=== PATIENT | female | born 1980 | race Caucasian/White ===

== ENCOUNTER 2017-05-22 10:18 | Inpatient (IN) | payer OTHER ==
[~2017-05-22] VITALS: Ht 157.5 cm; Wt 98.1 kg
--- NOTE | ~2017-05-22 | DS ---
Unit #: [id number] #: [id number] Patient: ED FRANCIS [id number] [address] [address] [id number] I MR#: [id number] NAME: ED FRANCIS ROOM: 568 Age: 36 Sex: F Admission Date: 05/22/2017 : 1980 Discharge Date: 05/30/2017 Attending Physician: Marisol Muniz M.D. Primary Care Physician: Gisel Monk M.D. DISCHARGE SUMMARY FINAL DIAGNOSES 1. Acute hypoxic respiratory failure. 2. Aspiration pneumonia. 3. Bibasilar atelectasis. 4. Possible right lower lobe pulmonary embolism nonocclusive. 5. Iron deficiency anemia. 6. Ejection fraction of 45% to 50%. 7. Elevated troponin on admission, per Cardiology, type 2, non-ST segment myocardial infarction. 8. Dysphagia/aspiration. 9. Hypothyroidism. 10. Chronic back pain. 11. Reformed tobacco abuse, quit two to three weeks ago. 12. Postoperative breast reduction and abdominoplasty. DISCHARGE MEDICATIONS 1. Clindamycin 300 mg q.i.d. 2. Eliquis 5 mg p.o. 2 tablets b.i.d. for 7 days, then 1 tablet b.i.d. 3. Levothyroxine 137 mcg p.o. daily. 4. Cytomel 5 mcg p.o. daily. 5. Flexeril continue home dose. 6. Protonix 40 mg daily. 7. Oxycodone continue home dose. Patient still has pain medications at home. 8. Ferrous gluconate 324 mg twice daily. 9. Bisacodyl 5 mg daily p.r.n. for constipation. 10. Lopressor 25 mg b.i.d. 11. Albuterol inhaler 2 puffs t.i.d. p.r.n. CONSULTATIONS 1. Dr. Leif Kaiser from pulmonary services. 2. Dr. Sharp from cardiology services. DIAGNOSTIC STUDIES LABORATORY ON DISCHARGE: CBC shows WBC 7.3, hemoglobin 8.4, hematocrit 25.2, and platelet count of 313,000. Total iron 16 which is low, TIBC 239 which is low, and transferrin 171 which is low. Sodium 138, potassium 3.8, chloride 103, BUN 10, creatinine 0.8, and calcium 7.9. Sputum culture was 1+ normal katerin. Troponin 0.14. Hemoglobin A1c 5.8. IMAGING: CTA of the chest on May 22, 2017, showed multifocal patchy ground-glass alveolar densities throughout both lungs. No pulmonary embolism was seen. Repeat CTA of the chest was done on May 29, 2017, that showed persistent filling defect within the distal right main Unit #: [id number] #: [id number] Patient: ED FRANCIS pulmonary artery concerning for isolated thrombus but no other definite thrombi are identified. Continued bibasilar atelectasis with increasing volume loss in both lung. Resolution of ground-glass opacities in the mid and upper lung zones. Ultrasound of the upper extremity showed superficial venous thrombosis in the proximal basilic vein. Otherwise, the study is normal. Bilateral ultrasound of the lower extremities was done which was negative for any DVT. HOSPITAL COURSE Ms. Ed Francis is a 36-year-old female who underwent breast reduction/lift and abdominoplasty and presented to the ER with increasing shortness of breath two to three days later. Patient also reported occasional cough with blood-tinged secretions. A CTA of the chest was done on admission day and PE was ruled out, and she was started on broad spectrum IV antibiotics. Dr. Leif Kaiser from pulmonary services was consulted. Antibiotics were started as per his recommendation. It was thought most likely this is aspiration as the patient has had aspiration-related complications in the past. Patient received IV Zosyn for the first few days, and later on she started complaining of shortness of breath associated with Zosyn. Antibiotics were changed to clindamycin as per Pulmonary recommendation. Patient has been doing well on that. Patient did have acute hypoxic respiratory failure. On discharge, patient's room air pulse oximetry is pretty low, and she is being discharged home on home O2. She may require this for one to three months or so. That needs to be evaluated as an outpatient. A CT scan which was done yesterday showed probable pulmonary embolism. Dr. Leif Kaiser discussed with radiologist. It has been decided to start her on anticoagulation therapy. Patient received Lovenox full dose in the hospital and is being changed to Eliquis 5 mg 2 tablets b.i.d. for 7 days and then change to 5 mg p.o. b.i.d. Most likely, she will need to continue this for three months. Patient's troponin was elevated during admission, and Cardiology was consulted. It has been suggested that there is a possibility that patient had type 2 troponin elevation secondary to pneumonia. Aspirin was added. Echocardiogram was done which showed ejection fraction of 45% to 50%. Patient will need to follow up with Cardiology as an outpatient. Patient was seen by Dr. Sharp in the hospital. Patient is postop breast reduction/lift and abdominoplasty. The patient has been advised to continue wound care as has been suggested by surgeon and follow up with Dr. Hwang as scheduled. Patient has an appointment coming up tomorrow for staple removal. PHYSICAL EXAMINATION ON DISCHARGE VITAL SIGNS: Blood pressure is 130/78, respiratory rate 18, pulse 78, temperature 97.8, and oxygen saturation is 98% on oxygen. HEENT: Head is normocephalic. CHEST: Fair air entry. A few rhonchi heard. CARDIOVASCULAR: S1 and S2 positive. Regular rhythm. ABDOMEN: Soft. EXTREMITIES: Negative edema. DISCHARGE INSTRUCTIONS 1. Patient is being discharged home in stable condition. 2. Medications as per medication reconciliation. 3. Follow up with primary care provider in one week. Unit #: [id number] #: [id number] Patient: ED FRANCIS 4. Follow up with Dr. Leif Kaiser in two weeks. 5. Home O2 is being arranged to keep saturation above 92%. 6. Eliquis to be taken for three months almost. 7. Follow up with Dr. Hwang as scheduled. 8. Follow up with Dr. Sharp, social studies teacher, in three to four weeks or so. 1. Dictated by... Debbie Tanner TD: 05/30/2017 14:12 JOB #: [id number] DISCHARGE SUMMARY Page 1 of 1 X Marisol Muniz MD DISCHARGE SUMMARY
--- NOTE | ~2017-05-22 | CR63 ---
[facility] A Service of [facility] RADIOLOGY TEXT RESULTS PATIENT: CLEO FRANCIS LOCATION: [facility] 568-01 : [birth year] UNIT #: [id number] AGE: [address]: Marisol Muniz MD SEX: F ORDER DR: [id number] [facility] [address] [facility]. [place], [place] [address] [id number] I MR#: [id number] Acc #: [id number] NAME: CLEO FRANCIS : 1980 SEX: F STUDY DATE/TIME: 05/25/2017 8:12 UNIT: [facility] ROOM: [facility] STUDY DESCRIPTION: CR Chest 2 View Attending Physician: Marisol Muniz M.D. Ordering Physician: Jed Kaiser M.D. Primary Care Physician: Gisel Monk M.D. MEDICAL IMAGING REPORT This report is preliminary unless electronic signature is present EXAM Chest 05/25/2017 HISTORY 36-year-old woman, short of air, cough, congestion x1 week. Recent surgical procedure, tummy tuck 1 week ago. COMPARISON Chest 09/23/2013. CT angio chest for PE 05/22/2017. FINDINGS PA and lateral chest views demonstrate large body habitus with reduced inspiratory effort. Multifocal infiltrates are again noted with atelectasis present in the right midlung and left lower lobe. Findings are most pronounced in the left lower lobe. Pulmonary emboli were not identified on the recent CTA of the chest. Therefore, multifocal pneumonia seems most likely. This is obviously unresolved at this time. Short-interval followup indicated. IMPRESSION Multifocal infiltrates with areas of atelectasis in both lungs. Presumably, pulmonary thromboembolic disease has been excluded. Multifocal pneumonia unresolved. Dictated by... Parveen Wong M.D. THIS IS AN ELECTRONICALLY VERIFIED REPORT Parveen Wong M.D. at 05/25/2017 11:04 AM KATHI/emanuel TD: 05/25/2017 09:16 [facility] A Service of [facility] RADIOLOGY TEXT RESULTS PATIENT: CLEO FRANCIS LOCATION: [facility] 568-01 : [birth year] UNIT #: [id number] AGE: [address]: Marisol Muniz MD SEX: F ORDER DR: JOB #: [id number] MEDICAL IMAGING REPORT Page 1 of 1 COPY
--- NOTE | ~2017-05-22 | CT16 ---
[facility] A Service of [facility] RADIOLOGY TEXT RESULTS PATIENT: CLEO FRANCIS LOCATION: [facility] 568-01 : [birth year] UNIT #: [id number] AGE: [address]: Marisol Muniz MD SEX: F ORDER DR: [id number] [facility] [address] [facility]. [place], [place] [address] [id number] I MR#: [id number] Acc #: [id number] NAME: CLEO FRANCIS. : 1980 SEX: F STUDY DATE/TIME: 05/22/2017 10:56 UNIT: [facility] ROOM: [id number] STUDY DESCRIPTION: CT Angio Chest for PE Attending Physician: Marisol Muniz M.D. Ordering Physician: Ely Murrell Pa-C Primary Care Physician: Gisel Monk M.D. MEDICAL IMAGING REPORT This report is preliminary unless electronic signature is present EXAM CTA chest with contrast PE protocol 05/22/2017 HISTORY 36-year-old female with shortness of breath today and yesterday morning. Tummy tuck procedure performed 5 days ago. COMPARISON PA and lateral chest radiograph 09/23/2013. No previous CT chest at this institution for comparison. PROCEDURE 2 mm axial images through the chest after IV contrast administration. 3-D coronal MIP reformatted images were obtained. This CT exam was performed with one or more of the following radiation dose reduction techniques: automatic exposure control, adjustment of mA and/or kV according to patient size, and iterative reconstruction. FINDINGS No pulmonary embolism is seen. Some of the distal segmental and subsegmental pulmonary arteries are obscured by airspace disease. Multifocal patchy ground-glass and alveolar densities are seen throughout both lungs, greatest within the bilateral lower lobes, favored to represent changes of multifocal pneumonia in the appropriate clinical context. Trace bilateral pleural effusions are present in the dependent bases. Heart size is within normal limits. No pathologic adenopathy is seen. Small amount of air is demonstrated within the right chest wall and within the right and midline upper abdominal wall consistent with recent surgical intervention. No pneumothorax or free intraperitoneal air is identified. Cholecystectomy changes are present. The included upper STS. [facility] A Service of [facility] RADIOLOGY TEXT RESULTS PATIENT: CLEO FRANCIS LOCATION: [facility] 568-01 : [birth year] UNIT #: [id number] AGE: [address]: Marisol Muniz MD SEX: F ORDER DR: abdominal organs have a normal appearance. No acute osseous abnormalities are identified. IMPRESSION 1. Multifocal patchy ground-glass alveolar densities are seen throughout both lungs, greatest in a bilateral lower lobe distribution. Findings are favored to represent changes of multifocal pneumonia in the appropriate clinical context. 2. No pulmonary embolism is seen. Some of the distal segmental and subsegmental pulmonary arteries are obscured by aforementioned airspace disease. 3. Trace bilateral pleural effusions. 4. Subcutaneous air in the right chest wall abdominal wall consistent with recent surgical intervention. No gross free intraperitoneal air is detected within the upper abdomen. 5. Cholecystectomy. Dictated by... Marley Gonzales M.D. THIS IS AN ELECTRONICALLY VERIFIED REPORT Marley Gonzales M.D. at 05/23/2017 7:08 AM Susanne TD: 05/22/2017 17:30 JOB #: [id number] MEDICAL IMAGING REPORT Page 1 of 1 COPY
--- NOTE | ~2017-05-22 | CR63 ---
[facility] A Service of [facility] RADIOLOGY TEXT RESULTS PATIENT: CLEO FRANCIS LOCATION: [facility] 568-01 : [birth year] UNIT #: [id number] AGE: [address]: Marisol Muniz MD SEX: F ORDER DR: [id number] [facility] [address] [facility]. [place], [place] [address] [id number] I MR#: [id number] Acc #: [id number] NAME: CLEO FRANCIS : 1980 SEX: F STUDY DATE/TIME: 05/29/2017 7:26 UNIT: [facility] ROOM: [facility] STUDY DESCRIPTION: CR Chest 2 View Attending Physician: Marisol Muniz M.D. Ordering Physician: Jed Kaiser M.D. Primary Care Physician: Gisel Monk M.D. MEDICAL IMAGING REPORT This report is preliminary unless electronic signature is present EXAM PA and lateral chest INDICATION Cough, shortness of breath for 1 week. COMPARISON 05/25/2017. FINDINGS Stable bibasilar atelectasis. Trace pleural fluid. Heart size stable. New right PICC line. IMPRESSION New right-sided PICC line; otherwise, no significant change. Dictated by... Toño Rooney M.D. THIS IS AN ELECTRONICALLY VERIFIED REPORT Toño Rooney M.D. at 05/30/2017 4:38 PM KRISTIN/emanuel TD: 05/29/2017 13:03 JOB #: [id number] MEDICAL IMAGING REPORT Page 1 of 1 COPY
--- NOTE | ~2017-05-22 | CO ---
Unit #: [id number] #: [id number] Patient: CLEO FRANCIS [id number] [facility]. [place], [place] [address] [id number] I MR#: [id number] NAME: CLEO FRANCIS ROOM: 568 Age: 36 Sex: F Admission Date: 05/22/2017 : 1980 Attending Physician: Marisol Muniz M.D. Primary Care Physician: Gisel Monk M.D. Consultation Date: 05/23/2017 CONSULTATION REPORT HISTORY OF PRESENT ILLNESS Ms. Francis is a 36-year-old white female, who presented with increasing shortness of breath and hypoxia. On 05/18/2017, she underwent abdominoplasty, I believe breast reduction. She presented to the emergency room on the , because of increased shortness of breath over the last 2 to 3 days. This was associated with coughing up some blood streaked sputum. It is initially reddened postoperatively and streaky, but has become dark in color with more scant amounts. She has had pain in the back of her throat and difficulty swallowing and choking on things. She is unaware of any fever or chills. On presentation to the emergency room, her room air O2 saturation was recorded at 84%. She underwent CT scan of the chest which revealed no evidence of pulmonary emboli with bilateral patchy ground-glass infiltrates and some alveolar infiltrates predominantly in the bases of the lungs. Her troponin was mildly elevated at 0.23 with a max of 0.36. Her EKG showed some nonspecific ST-T wave changes. She does have a history of chest pain since she was a child. Apparently, has had a stress chest and EKG which was unremarkable and felt not to be cardiac related. She says it may have been related to anxiety. She has no history of cardiac disease. She is reformed smoker x2 weeks, has accumulated less than 8 pack year history, but stopped 2 weeks ago. She has never had hemoptysis before. She had no illness prior to surgery. PAST MEDICAL HISTORY Significant for chronic low back pain, history of hypothyroidism secondary to thyroidectomy, surgery of breast reduction, abdominoplasty, thyroidectomy, hysterectomy, cholecystectomy. SOCIAL HISTORY Reformed smoker x2 weeks, smoked less than a pack a day for 8 years. No alcohol or illicit drugs. FAMILY HISTORY No history of coronary artery disease. ALLERGIES Sulfa, tetracycline, erythromycin, apparently latex, and codeine. HOME MEDICATIONS Listed include fluconazole, Medrol Dosepak, hydrocodone and acetaminophen, Cytomel, methocarbamol, Synthroid, Flexeril. REVIEW OF SYSTEMS Otherwise negative. Unit #: [id number] #: [id number] Patient: CLEO FRANCIS PHYSICAL EXAMINATION GENERAL: Pleasant white female, in no distress. VITAL SIGNS: Blood pressure 119/75, pulse 78, respiratory rate 18, temperature 98.7. HEENT: Normocephalic and atraumatic. Pupils are equal, round, and reactive. Sclerae nonicteric. Nasal passages patent. Oral cavity, dentition good. Mallampati IV. There appears to be some trauma to the left side of the uvula with some white/yellowish discoloration with long streak along the uvula. NECK: Supple, thick. No cervical or supraclavicular lymphadenopathy. No crepitance. LUNGS: Reveals some crackles in the right base, otherwise fairly clear. No wheezing. CARDIAC: Regular rate and rhythm. Could not appreciate murmur, rub, or gallop. EXTREMITIES: Without clubbing, cyanosis, or edema. Homans sign negative. No cords palpated. Pulses 2+. NEUROLOGIC: Awake and oriented x3, moves all extremities. SKIN: Warm and dry. PSYCHIATRIC: Affect calm. No respiratory distress. DIAGNOSTIC STUDIES IMAGING STUDIES: Chest CT personally reviewed as noted. LABORATORY RESULTS: Chemistries reviewed. Sodium 130, potassium 3.9, glucose 156, calcium 8.0, albumin 3.1. Liver function tests normal. BNP is 300. Hemoglobin A1c is 5.8. Lactic acid 2.3 and 2.2. Triglycerides 190, LDL 96, HDL 39 TSH 1.9. Procalcitonin 0.19. Coags normal. White blood cell count 03454, hematocrit 29.2, platelet count normal. IMPRESSION 1. Acute hypoxemic respiratory failure. 2. Bilateral pulmonary infiltrates consistent with possible pneumonia, possibly aspiration related given history of choking or could be secondary to aspiration of blood or less likely atypical appearance of congestive heart failure. 3. Elevated troponin. Cardiology seeing. 4. Rule out non-ST elevated myocardial infarction. Evaluate LV function with echocardiogram. 5. Mild trauma to posterior pharynx/uvula from intubation resulting into mild/hemoptysis. PLAN Agree with covering for possible aspiration pneumonia with Zosyn. I doubt she has MRSA or resistant gram negatives. Surgery was done at an outpatient center. We would cover with Zosyn. Although chest CT did not reveal any pulmonary emboli. Pulmonary arteries were not seen due to the infiltrates and we will go ahead and check lower extremity venous Doppler study to further rule out possibility of venous thromboembolism. Cardiology is evaluating for possible atypical CHF and non-ST elevated myocardial infarction. We will need followup chest CT to ensure clearing. We will make further recommendations pending this. Unit #: [id number] #: [id number] Patient: CLEO FRANCIS Dictated by... Debbie Francisco/genevieve TD: 05/24/2017 00:43 JOB #: [id number] CC: Nabeel Horta M.D. CONSULTATION REPORT Page 1 of 1 X Jed Kaiser MD X CONSULTATION REPORT
--- NOTE | ~2017-05-22 | EKG ---
PATIENT: CLEO FRANCIS UNIT #: [id number] Ventricular Rate: 97 BPM Atrial Rate: 97 BPM P-R Interval: 136 ms QRS Duration: 86 ms Q-T Interval: 372 ms QTC Calculation(Bezet): 472 ms P [place]: 37 degrees Calculated R [place]: 4 degrees Calculated T [place]: 2 degrees Diagnosis Line: Normal sinus rhythm Diagnosis Line: Possible Inferior infarct , age undetermined Diagnosis Line: Abnormal ECG Diagnosis Line: When compared with ECG of 05-DEC-2015 08:09, Diagnosis Line: Borderline criteria for Inferior infarct are now Diagnosis Line: Present Diagnosis Line: T wave inversion now evident in Anterior leads Diagnosis Line: Confirmed by BENSON THORNTON MD ([id number]) on Diagnosis Line: 05/23/2017 5:04:15 PM INTERPRETING MD: NORBERTO SHARPE
--- NOTE | ~2017-05-22 | CO ---
Unit #: [id number] #: [id number] Patient: CLEO FRANCIS [id number] [address] [address] [id number] I MR#: [id number] NAME: CLEO FRANCIS ROOM: 568 Age: 36 Sex: F Admission Date: 05/22/2017 : 1980 Attending Physician: Marisol Muniz M.D. Primary Care Physician: Gisel Monk M.D. Consultation Date: 05/22/2017 CONSULTATION REPORT REASON FOR CONSULTATION Elevated troponin. HISTORY OF PRESENT ILLNESS This is a 36-year-old female with a prior medical history of chronic lower back pain and reformed tobacco abuse. On 05/18/2017, she underwent breast reduction and abdominoplasty. She presents to the ER today with increasing shortness of breath lasting two to three days. Denies PND or orthopnea or chest pain and palpitations. She does report an occasional cough with blood-tinged secretions. She denies recent illness or fever, chills or nausea and vomiting. A CT of the chest revealed pneumonia and was negative for pulmonary embolism. Her troponin in the ER was elevated at 0.23 and repeat troponin was 0.19. Her EKG had nonspecific T wave abnormalities. The patient reports a history of chest pain as a child at which time she underwent a stress and EKG and was found to not be cardiac related. She denies a history of hypertension, diabetes, or hyperlipidemia. PREVIOUS MEDICAL HISTORY 1. Reformed tobacco abuse, quit two weeks ago. 2. Chronic lower back pain. 3. Hypothyroidism. PAST SURGICAL HISTORY 1. Breast reduction. 2. Abdominoplasty. 3. Thyroidectomy in 2015. 4. Hysterectomy in 2009. 5. Cholecystectomy. SOCIAL HISTORY She is a former smoker who quit two weeks ago. She denies alcohol or illicit drug use. FAMILY HISTORY She denies a family history of premature coronary artery disease. ALLERGIES She is allergic to sulfa, codeine, tetracycline, erythromycin and latex. HOME MEDICATIONS 1. Fluconazole 150 mg p.o. x1. 2. Medrol Dosepak. 3. Oxycodone/acetaminophen 7.5 mg/325 mg, one tablet p.o. every four Unit #: [id number] #: [id number] Patient: CLEO FRANCIS R hours as needed for moderate pain. 4. Cytomel 5 mcg p.o. daily. 5. Methocarbamol 750 mg p.o. three times a day. 6. Synthroid 137 mcg p.o. daily. 7. Hydrocodone/acetaminophen 5/325 mg, one tablet p.o. three times daily as needed for moderate pain. 8. Flexeril 10 mg p.o. three times a day as needed for muscle spasms. REVIEW OF SYSTEMS A ten point review of systems was detected and is otherwise negative except for what was stated in HPI. PHYSICAL EXAMINATION VITAL SIGNS: Temp 98.4, heart rate 87, respiratory rate 20, blood pressure 145/83. GENERAL: This is a 36-year-old female resting in bed in no acute distress. HEENT: Head is atraumatic and normocephalic. Pupils are equal and round. Mucous membranes are moist. NECK: Supple. Trachea is midline. Negative for JVD. LUNGS: Coarse and diminished in bases. Nonlabored respirations. EXTREMITIES: Pulses are palpable. No pedal edema. No cyanosis. CARDIOVASCULAR: S1, S2. Regular rate and rhythm. No significant murmurs, rubs or gallops. ABDOMEN: Soft, nontender, nondistended. NEUROLOGIC: Alert and oriented x3. Moves all extremities equally and follows commands without difficulty. DIAGNOSTIC STUDIES LABORATORY: Sodium 130, potassium 3.9, chloride 97, BUN 17, creatinine 0.9, glucose 156, hemoglobin 9.9, hematocrit 29.2, white blood cell count 19.5, platelets 365. IMAGING: CT of the chest is negative for pulmonary embolism and reveals pneumonia. CARDIOVASCULAR: EKG shows sinus rhythm with a ventricular rate of 96 and T wave inversions in V1 through V3. ASSESSMENT 1. Pneumonia. 2. Mildly elevated troponin, likely type 2. 3. Status post bilateral breast reduction and abdominoplasty on 05/18/2017 for hypothyroidism. PLAN She denies chest pain or chest discomfort. We will check an echocardiogram. Continue to trend cardiac enzymes. This is likely type 2 troponin elevation secondary to pneumonia. Add aspirin. Check fasting lipid profile, TSH, and hemoglobin A1c. We will beta bhavya as heart rate tolerates. Thank you for asking us to see this patient. We appreciate the consult. Dictated by... Kasandra Jones APRN for Unit #: [id number] #: [id number] Patient: CLEO FRANCIS M.D. RB/df TD: 05/23/2017 10:49 JOB #: [id number] CONSULTATION REPORT Page 1 of 1 X X CONSULTATION REPORT
--- NOTE | ~2017-05-22 | HP ---
Unit #: [id number] #: [id number] Patient: CLEO FRANCIS [id number] [address] [place], [place] [address] [id number] I MR#: [id number] NAME: CLEO FRANCIS ROOM: 568 Age: 36 Sex: F Admission Date: 05/22/2017 : 1980 Attending Physician: Marisol Muniz M.D. Primary Care Physician: Gisel Monk M.D. HISTORY AND PHYSICAL CHIEF COMPLAINT Shortness of breath. HISTORY OF PRESENTING ILLNESS A 36-year-old female with past medical history of chronic back pain came because she had a breast reduction and a tummy tuck done on 05/18/17. She was doing well since yesterday when she started having shortness of breath. Actually the shortness of breath started the day after the surgery. She did not have any chest pain but she was feeling kind of tightness in the chest. She did not have any orthopnea but she had difficulty breathing even while lying down. She did not have any palpitations. No complaint of tingling or numbness of the left upper extremity. No complaint of neck pain. No complaint of any sweating with shortness of breath. No complaint of nausea or vomiting. No complaint of fever. Patient did have cough with blood-tinged secretions. Patient was seen in ER. Pulmonary embolism was ruled out and CT of the chest reveals pneumonia. Patent was admitted to telemetry unit. PAST MEDICAL HISTORY 1. Chronic back pain. 2. Hypothyroidism. 3. History of tobacco abuse, quit recently. PAST SURGICAL HISTORY 1. History of thyroidectomy in 2016, now postprocedural hypothyroidism. 2. History of hysterectomy in 2009. 3. History of cholecystectomy. 4. History of breast reduction and abdominoplasty on 05/18/17. FAMILY HISTORY Patent does not have any significant family history. ALLERGIES Codeine, sulfa, erythromycin, latex and tetracycline. SOCIAL HISTORY Patient does have history of smoking, has been smoking for a few years. She quit about two weeks ago because of her surgery. No history of alcohol abuse or drug abuse. REVIEW OF SYMPTOMS As per history of presenting illness. There is no history of fever, chills, rigors. No history of syncopal episode or dizziness. The rest is Unit #: [id number] #: [id number] Patient: CLEO FRANCIS as per history of presenting illness. Patient does have wound on the breast and abdomen, seem to be clear. There is pain still present at the site of the surgery but no drainage and no worsening of pain. HOME MEDICATIONS 1. Medrol Dosepak. 2. Oxycodone 7.5/325 q.4 h. p.r.n. 3. Cytomel 5 mcg daily. 4. Fluconazole. 5. Methocarbamol 750 mg t.i.d. 6. Synthroid 137 mcg daily. 7. Flexeril p.r.n. PHYSICAL EXAMINATION Patient is evaluated in room 568 VITAL SIGNS: On admission blood pressure 145/83. Respiratory rate 20. Pulse is 115. Temperature 98.4. Oxygen saturation on admission was 84%. HEENT: Head is normocephalic. Eye movements are normal. NECK: Neck is supple. No carotid bruit. Trachea is in midline. Negative for any JVD. CHEST: Decreased air entry. Crackles are present in the lower lobes. ABDOMEN: Status post surgery. Tenderness is present. Bowel sounds are positive. EXTREMITIES: Negative edema. No pedal edema. CVS: S1, S2 positive. Regular rhythm. Tachycardia. BREASTS: Status post breast reduction surgery. Incision seems to be normal and stable. No abnormal drainage. CLAIMS COLLECTOR: Awake, alert, oriented x3. No focal neurological deficit. DIAGNOSTIC STUDIES LABORATORY: Workup which was done in ER shows troponin of 0.23, elevated; sodium 130, potassium 3.9, chloride 97, BUN 17, creatinine 0.7, lactic acid was 2.3, WBC 19.5, hemoglobin 9.9, hematocrit 29.2 and platelet count of 365, TSH 1.90, BNP 300. Blood cultures have been done. IMAGING: CT of the chest was done which shows multifocal patchy ground glass alveolar densities are seen throughout both lungs, no pulmonary embolism is seen. ASSESSMENT Patient is being admitted to a telemetry unit at [facility] with admitting diagnoses of: 1. Acute hypoxic respiratory failure. 2. Bilateral ground glass infiltrates, possible aspiration pneumonia. 3. Hemoptysis post intubation. 4. Sepsis. 5. Elevated troponin, nondiagnostic per Cardiology. 6. Postop abdominoplasty and breast lift. 7. Chronic back pain. 8. Post procedural hypothyroidism. PLAN 1. Plan is admit to telemetry unit. 2. Cardiology has been consulted for abnormal elevation of troponin, possibility of non-ST elevation myocardial infarction although it could be just secondary to pneumonia. Aspirin is being added. Lipid profile will be done. Hemoglobin A1C will be done. [facility] will be consulted. Unit #: [id number] #: [id number] Patient: CLEO FRACNIS 3. Patient does have acute hypoxic respiratory failure, most likely secondary to pneumonia. Broad-spectrum antibiotic is being started. Dr. Leif Kaiser has been consulted. Aspiration precautions will be done. Bedside swallow study will be done and home medications have been reviewed. 4. Per patient, she is very comfortable with doing her wound dressing. Her helps her so no need to consult anyone at this time. 5. Home medication has been reviewed and adjusted. 6. Please refer to progress note for further orders. I discussed with patient and the patient's sister at length about plan of care. Dictated by Debbie Tanner/gamal TD: 05/24/2017 15:28 JOB #: [id number] HISTORY AND PHYSICAL Page 1 of 1 X Marisol Muniz MD X HISTORY AND PHYSICAL
--- NOTE | ~2017-05-22 | CT16 ---
[facility] A Service of [facility] RADIOLOGY TEXT RESULTS PATIENT: CLEO FRANCIS LOCATION: [facility] 568-01 : [birth year] UNIT #: [id number] AGE: [address]: Marisol Muniz MD SEX: F ORDER DR: [id number] [facility] [address] [place], [place] [address] [id number] I MR#: [id number] Acc #: [id number] NAME: CLEO FRANCIS : 1980 SEX: F STUDY DATE/TIME: 05/29/2017 12:53 UNIT: [facility] ROOM: [facility] STUDY DESCRIPTION: CT Angio Chest for PE Attending Physician: Marisol Muniz M.D. Ordering Physician: Jed Kaiser M.D. Primary Care Physician: Gisel Monk M.D. MEDICAL IMAGING REPORT This report is preliminary unless electronic signature is present EXAM CT chest PE protocol. HISTORY Shortness of air since 05/18/2017, acute hypoxic respiratory failure, 05/29/2017. Recent surgery [address] chest PE protocol, 05/22/2017 TECHNIQUE Axial images performed through the chest following IV contrast. 3-D coronal and sagittal reconstructed images were reviewed. This CT exam was performed with one or more of the following radiation dose reduction techniques: automatic exposure control, adjustment of mA and/or kV according to patient size, and iterative reconstruction. FINDINGS Extensive bibasilar parenchymal opacities compatible with subsegmental atelectasis or infiltrate. Relative enhancement favors atelectasis. There is a small right pleural effusion and trace amount of left pleural fluid. Background parenchyma unremarkable. Small amount of right middle lobe atelectasis and lingular atelectasis. Trachea and bronchi unremarkable. There is a persistent filling defect within the right pulmonary artery extending into the right lower lobe pulmonary artery. This is at least partially surrounded by contrast and highly concerning for pulmonary embolus. No distal emboli identified and no other definitive emboli seen within the upper lungs or left lung. No evidence of a right ventricular strain. No pericardial effusion. Aorta free of dissection or aneurysm. [facility] A Service of [facility] RADIOLOGY TEXT RESULTS PATIENT: CLEO FRANCIS LOCATION: [facility] 568-01 : [birth year] UNIT #: [id number] AGE: [address]: Marisol Muniz MD SEX: F ORDER DR: Upper abdomen remarkable for postcholecystectomy changes. Residual positive contrast noted within the transverse colon. Small amount of suspected fluid and gas is seen in the anterior chest consistent with the patient's history of recent breast reduction surgery. Low-attenuation collection is seen in the left breast measuring about 2.8 cm x 5.5 cm and may represent a postoperative seroma. Osseous structures and thoracic inlet unremarkable. IMPRESSION 1. Persistent filling defect within the distal right main pulmonary artery and within the right lower lobe pulmonary artery proximal. This is concerning for an isolated thrombus but no other definitive thrombi are identified. Potentially this could represent partial volume artifact however it appears to be visible on all 3 planes of imaging and is at least partially surrounded by contrast on multiple images, again concerning for nonocclusive intraluminal thrombus. This appears new from the 05/22/2017 study. 2. Continued bibasilar atelectasis with increasing volume loss in both lung bases. There has been resolution of the ground-glass opacities in the mid and upper lung zones when compared to the 05/22/2017 study. 3. Postoperative changes in the chest wall from recent breast reduction surgery. Small amount of fluid and gas noted in the anterior chest midline as well as a low-attenuation collection in the left lower breast measuring up to 5.5 cm and could represent a seroma. There may be a small vertically oriented collection in the right breast measuring about 3.6 cm in length and also may represent a small seroma. Dictated by... Rasheed Rooney M.D. THIS IS AN ELECTRONICALLY VERIFIED REPORT Rasheed Rooney M.D. at 05/30/2017 10:15 AM GARRETT/chanda TD: 05/29/2017 22:35 JOB #: [id number] MEDICAL IMAGING REPORT Page 1 of 1 COPY
--- NOTE | ~2017-05-22 | US84 ---
[id number] [facility] [address] [place], [place] [address] [id number] I MR#: [id number] Acc #: [id number] NAME: CLEO FRANCIS : 1980 SEX: F STUDY DATE/TIME: 05/23/2017 12:23 UNIT: [facility] ROOM: [facility] STUDY DESCRIPTION: US LE Veins Complete Bandar Stdy Attending Physician: Marisol Muniz M.D. Ordering Physician: Marisol Muniz M.D. Primary Care Physician: Gisel Monk M.D. MEDICAL IMAGING REPORT This report is preliminary unless electronic signature is present EXAM Bilateral lower extremity venous duplex 05/23/2017 HISTORY Bilateral lower extremity edema for 5 days postop abdominal surgery 5 days ago. Evaluate for deep vein thrombosis. TECHNIQUE Venous ultrasound examination of both lower extremities was performed using grayscale, spectral Doppler and color flow Doppler imaging. FINDINGS The examination is negative. There is no evidence of deep venous thrombus from the groin to the lower calf bilaterally. Visualized greater saphenous veins are also patent. IMPRESSION Negative examination. No evidence of lower extremity deep venous thrombosis. Dictated by... Edin Newman M.D. THIS IS AN ELECTRONICALLY VERIFIED REPORT Edin Newman M.D. at 05/24/2017 2:17 PM KRT/pcl TD: 05/23/2017 21:23 JOB #: [id number] MEDICAL IMAGING REPORT Page 1 of 1 COPY
--- NOTE | ~2017-05-22 | XA166 ---
[facility] A Service of [facility] & [facility] RADIOLOGY TEXT RESULTS PATIENT: CLEO FRANCIS LOCATION: [facility] 568-01 : [birth year] UNIT #: [id number] AGE: [address]: Marisol Muniz MD SEX: F ORDER DR: [id number] [id number] [place], [place] [address] [id number] I MR#: [id number] Acc #: [id number] NAME: LCEO FRANCIS : 1980 SEX: F STUDY DATE/TIME: 05/26/2017 15:31 UNIT: [facility] ROOM: [facility] STUDY DESCRIPTION: XA PICC Line Placement WO Port Attending Physician: Marisol Muniz M.D. Ordering Physician: Jed Kaiser M.D. Primary Care Physician: Gisel Monk M.D. MEDICAL IMAGING REPORT This report is preliminary unless electronic signature is present EXAM PICC line placemen. INDICATION Need for IV access in a patient with a history of multifocal pneumonia diagnosed May 22, 2017. PRE-PROCEDURE The procedure was explained to the patient and/or patient customer assistance representative including risks, benefits, potential complications and potential for alternative forms of treatment. Informed consent was obtained, and prior to initiating the procedure a formal timeout procedure was performed. PROCEDURE Using full standard sterile barrier technique, including caps, gowns, gloves, masks, as well as sterile skin preparation and standard sterile draping, the right arm was prepped and draped in the usual fashion, and real-time sterile ultrasound guidance was used to localize an arm vein and to confirm vessel patency. A hard copy ultrasound image was recorded. After local anesthesia with 1% Xylocaine, the vein was punctured using real-time sterile ultrasound guidance, and an 0.018 guidewire was advanced into the superior vena cava, using fluoroscopic guidance. A 5-Canadian dual-lumen PICC was then measured and deployed with the tip positioned in the superior vena cava. The position of the line was documented with a radiographic image. The line was secured in place with an adhesive dressing and an antibiotic patch was applied. Total fluoro time was 0.1 minutes. AK was 5 mGy. IMPRESSION Successful placement of a 5-Canadian dual-lumen PowerPICC via the arm under ultrasound and fluoroscopic guidance. The tip of the PICC is in good position in the superior vena cava. [facility] A Service of [facility] & [facility] RADIOLOGY TEXT RESULTS PATIENT: CLEO FRANCIS LOCATION: [facility] 568-01 : [birth year] UNIT #: [id number] AGE: [address]: Marisol Muniz MD SEX: F ORDER DR: Dictated by... Brielle Momin M.D. THIS IS AN ELECTRONICALLY VERIFIED REPORT Brielle Momin M.D. at 05/29/2017 5:06 PM RAMONA/sanjana TD: 05/29/2017 14:24 JOB #: [id number] MEDICAL IMAGING REPORT Page 1 of 1 COPY
--- NOTE | ~2017-05-22 | US140 ---
[facility] A Service of [facility] & [facility] RADIOLOGY TEXT RESULTS PATIENT: CLEO FRANCIS LOCATION: [facility] 568-01 : [birth year] UNIT #: [id number] AGE: [address]: Marisol Muniz MD SEX: F ORDER DR: [id number] [facility] [address] [place], [place] [address] [id number] I MR#: [id number] Acc #: [id number] NAME: CLEO FRANCIS : 1980 SEX: F STUDY DATE/TIME: 05/27/2017 8:59 UNIT: [facility] ROOM: [facility] STUDY DESCRIPTION: US UE Veins Unilat or Ltd Stdy Attending Physician: Marisol Muniz M.D. Ordering Physician: Benton Borges M.D. Primary Care Physician: Gisel Monk M.D. MEDICAL IMAGING REPORT This report is preliminary unless electronic signature is present EXAM Left upper extremity venous ultrasound HISTORY Left upper extremity swelling. Patient said arms have been swollen for 2 days with heaviness in arm after IV blew. FINDINGS The venous system of the upper extremity on the left side was evaluated with hope-scale imaging, color flow Doppler and compression ultrasound. There is flow and compression where appropriate throughout the upper extremity except for in the proximal basilic vein where there is a noncompressible portion with trickle flow. IMPRESSION There is some superficial venous thrombosis in the proximal basilic vein. Otherwise the study is normal. Dictated by... Tiago Mendez M.D. THIS IS AN ELECTRONICALLY VERIFIED REPORT Tiago Mendez M.D. at 05/28/2017 9:35 PM SEAN/obi TD: 05/27/2017 23:35 JOB #: [id number] MEDICAL IMAGING REPORT Page 1 of 1 COPY
[~2017-05-22 10:18] MED LIST: DIFLUCAN PO; ESTRACE2 M1 PO; FLEXERIL10 MG PO; KEFLEX500 M1 PO; LITHIUM PO; MACROBID100 M1 PO; MEDROL4 MG/DOSE- PO; PYRIDIUM PO; TRAZODONE; TYLENOL #3 PO; VITAMIN B12-FO1 EACH PO; VITAMIN D10000 UNIT PO; VOLTAREN50 MG PO; VOLTAREN75 MG PO; VYVANSE30 MG PO; ZOLOFT; ZOLOFT50 MG PO
[2017-05-22 10:57] LABS: POC - TROPONIN 0.23 ng/mL (<=0.05)
[2017-05-22 11:04] LABS: BASOPHIL% 0.1 % (0-2.5); HEMATOCRIT 29.2 % (35.0-45.0); HEMOGLOBIN 9.9 gm/dL (12.0-16.0); LYMPHOCYTE# 3.7 X10e3 (1.0-3.5); LYMPHOCYTE% 18.9 % (17.0-45.0); MEAN CELL VOLUME 91.7 FL (83-96); MEAN CORPUSCULAR HGB CONC 33.9 g/dL (30-36); MEAN PLATELET VOLUME 7.2 FL (6.5-11.5); MONOCYTE# 1.1 X10e3 (0-1.0); MONOCYTE% 5.6 % (3.0-12.0); NEUTROPHIL# 14.7 X10e3 (1.5-7.1); NEUTROPHIL% 75.4 % (40-75); PLATELET COUNT 365 X10e3 (140-420); RED BLOOD COUNT 3.18 X10e (3.90-5.30); RED CELL DISTRIBUTION WIDTH 14.4 % (11.0-15.5); WHITE BLOOD COUNT 19.5 X10e3 (4.0-10.5)
[2017-05-22 11:05] LABS: DIFF IND YES
[2017-05-22 11:06] LABS: POC - CREATININE 0.74 mg/dL (0.44-1.03); POC - GFR >60.0 mL/min (>60)
[2017-05-22 11:08] LABS: PARTIAL THROMBOPLASTIN TIME 21.6 SECONDS (23.5-31.3); PROTHROMBIN TIME (PATIENT) 10.5 SECONDS (10.0-11.7)
[2017-05-22 11:18] LABS: ALBUMIN SERUM 3.1 g/dL (3.5-5.0); BILIRUBIN, DIRECT 0.1 mg/dL (0.0-0.2); BILIRUBIN,INDIRECT 0.4 mg/dL (0.0-0.9); BILIRUBIN,TOTAL 0.5 mg/dL (0.2-2.0); BUN/CREATININE RATIO 18.88; CREATININE SERUM 0.9 mg/dL (0.6-1.4); GLOM FILT RATE Estimated 81.2 mL/min (>60); POTASSIUM 3.9 mmol/L (3.5-5.1); PROTEIN TOTAL SERUM 6.8 g/dL (6.0-8.3)
[2017-05-22] MEDS ORDERED: PATIENT'S PHARMACY (11:33)
[2017-05-22] MEDS ORDERED: FLUCONAZOLE150 M1 PO (11:33)
[2017-05-22] MEDS ORDERED: MEDROL DOSEPAK4 MG (11:34)
[2017-05-22] MEDS ORDERED: OXYCODON-ACETA1 EAC1 PO (11:35)
[2017-05-22] MEDS ORDERED: CYTOMEL5 MCG PO (11:35)
[2017-05-22] MEDS ORDERED: ROBAXIN PO (11:35)
[2017-05-22] MEDS ORDERED: HYDROCODON-ACE1 EAC7 PO (11:36)
[2017-05-22] MEDS ORDERED: SYNTHROID137 MCG PO (11:36)
[2017-05-22] MEDS ORDERED: FLEXERIL10 MG PO (11:36)
[2017-05-22 12:50] LABS: POC - CKMB 6.8 ng/mL (0.0-7.9); POC - TROPONIN 0.19 ng/mL (<=0.05)
[2017-05-22 13:30] LABS: ANISOCYTOSIS SL; NUCLEATED RED BLOOD CELL 3 /100 (0); PLATELET ESTIMATE NORMAL (NORMAL); POLYCHROMASIA SL
[2017-05-22 14:59] LABS: CHOLESTEROL 173 mg/dL (0-200); HDL CHOLESTEROL 39 mg/dL (35-95); LDL CHOLESTEROL 96 mg/dL (-130); LDL/HDL RATIO 2 RATIO (0-4); TRIGLYCERIDES 190 mg/dL (10-160)
[2017-05-22 15:25] LABS: URINE SOURCE CLEAN CATCH
[2017-05-22 15:33] LABS: URINE APPEARANCE CLEAR; URINE BILIRUBIN NEG (NEG); URINE BLOOD NEG (NEG); URINE COLOR YELLOW; URINE GLUCOSE NEG (NEG); URINE KETONE NEG (NEG); URINE LEUKOCYTE ESTERASE NEG (NEG); URINE NITRATE NEG (NEG); URINE PH 7.5 (5-8); URINE PROTEIN NEG (NEG); URINE SPECIFIC GRAVITY 1.028 (1.003-1.035); URINE UROBILINOGEN 0.2 MG/DL (NEG)
[2017-05-22 15:44] LABS: CULTURE INDICATED? NO
[2017-05-22 19:18] LABS: %MB 0.9 % (0.0-4.0); MB 7.7 ng/ml
[2017-05-23 01:19] LABS: %MB 1.1 % (0.0-4.0); MB 8.3 ng/ml
[2017-05-23 11:23] LABS: CALCIUM SERUM 7.7 mg/dL (8.4-10.2); CREATININE SERUM 0.8 mg/dL (0.6-1.4); GLOM FILT RATE Estimated 93.6 mL/min (>60); POTASSIUM 3.8 mmol/L (3.5-5.1)
[2017-05-24 06:31] LABS: HEMATOCRIT 26.5 % (35.0-45.0); HEMOGLOBIN 8.9 gm/dL (12.0-16.0); MEAN CELL VOLUME 94.3 FL (83-96); MEAN CORPUSCULAR HEMOGLOBIN 31.7 PG (28-34); MEAN CORPUSCULAR HGB CONC 33.6 g/dL (30-36); RED BLOOD COUNT 2.81 X10e (3.90-5.30); RED CELL DISTRIBUTION WIDTH 14.5 % (11.0-15.5); WHITE BLOOD COUNT 11.3 X10e3 (4.0-10.5)
[2017-05-24 07:09] LABS: BUN/CREATININE RATIO 32.85; CALCIUM SERUM 7.6 mg/dL (8.4-10.2); CREATININE SERUM 0.7 mg/dL (0.6-1.4); GLOM FILT RATE Estimated 109.9 mL/min (>60); POTASSIUM 4.2 mmol/L (3.5-5.1)
[2017-05-25 07:02] LABS: HEMATOCRIT 27.8 % (35.0-45.0); HEMOGLOBIN 9.5 gm/dL (12.0-16.0); MEAN CELL VOLUME 93.9 FL (83-96); MEAN CORPUSCULAR HGB CONC 34.1 g/dL (30-36); MEAN PLATELET VOLUME 7.1 FL (6.5-11.5); RED BLOOD COUNT 2.96 X10e (3.90-5.30); RED CELL DISTRIBUTION WIDTH 14.2 % (11.0-15.5); WHITE BLOOD COUNT 11.7 X10e3 (4.0-10.5)
[2017-05-27 06:16] LABS: HEMOGLOBIN 8.6 gm/dL (12.0-16.0); MEAN CELL VOLUME 93.5 FL (83-96); MEAN CORPUSCULAR HEMOGLOBIN 32.3 PG (28-34); MEAN CORPUSCULAR HGB CONC 34.5 g/dL (30-36); MEAN PLATELET VOLUME 6.8 FL (6.5-11.5); RED BLOOD COUNT 2.67 X10e (3.90-5.30); RED CELL DISTRIBUTION WIDTH 14.5 % (11.0-15.5); WHITE BLOOD COUNT 9.2 X10e3 (4.0-10.5)
[2017-05-27 06:42] LABS: BUN/CREATININE RATIO 12.5; CALCIUM SERUM 7.9 mg/dL (8.4-10.2); CREATININE SERUM 0.8 mg/dL (0.6-1.4); GLOM FILT RATE Estimated 93.6 mL/min (>60); POTASSIUM 3.8 mmol/L (3.5-5.1)
[2017-05-28 05:46] LABS: HEMATOCRIT 25.7 % (35.0-45.0); HEMOGLOBIN 8.8 gm/dL (12.0-16.0); MEAN CELL VOLUME 93.8 FL (83-96); MEAN CORPUSCULAR HGB CONC 34.2 g/dL (30-36); MEAN PLATELET VOLUME 6.8 FL (6.5-11.5); RED BLOOD COUNT 2.74 X10e (3.90-5.30); RED CELL DISTRIBUTION WIDTH 14.9 % (11.0-15.5); WHITE BLOOD COUNT 9.2 X10e3 (4.0-10.5)
[2017-05-28 07:12] LABS: IRON SERUM 16 ug/dL (28-170); TOTAL IRON BINDING CAPACITY 239 ug/dL (269-535); TRANSFERRIN 171 mg/dL (192-382); TRANSFERRIN SATURATION 7 % (20-50)
[2017-05-30 06:27] LABS: HEMATOCRIT 25.2 % (35.0-45.0); HEMOGLOBIN 8.4 gm/dL (12.0-16.0); MEAN CELL VOLUME 93.1 FL (83-96); MEAN CORPUSCULAR HGB CONC 33.3 g/dL (30-36); MEAN PLATELET VOLUME 7.1 FL (6.5-11.5); RED BLOOD COUNT 2.71 X10e (3.90-5.30); RED CELL DISTRIBUTION WIDTH 14.9 % (11.0-15.5); WHITE BLOOD COUNT 7.3 X10e3 (4.0-10.5)
[2017-05-30] MEDS ORDERED: LOPRESSOR PO (14:55)
[2017-05-30] MEDS ORDERED: BISACODYL EC5 M1 PO (14:58)
[2017-05-30] MEDS ORDERED: FERROUS GLUCON324 M1 PO (15:02)
[2017-05-30] MEDS ORDERED: BAYER CHEWABLE81 MG PO (15:04)
[2017-05-30] MEDS ORDERED: PROTONIX PO (15:05)
[2017-05-30] MEDS ORDERED: CLINDAMYCIN HC300 MG PO (15:07)
[2017-05-30] MEDS ORDERED: ELIQUIS5 MG PO (15:10)
[2017-05-30] MEDS ORDERED: ALBUTEROL17 GM INH (15:13)
== END 2017-05-30 17:00 | disposition home or self-care (01) | DRG 871 ==
LOC: CED 10:18 → CEDOF 12:15 → C5C 12:15 → CED 13:20 → CEDOF 13:20 → C5C 19:45 → CEDOF 19:45 → C5C 05-30 17:00
PROVIDERS: Hospitalist; Internal Medicine; Internal Medicine Interventional Cardiology; Nurse Practitioner Family; Physician Assistant Medical
PROC: B32TYZZ Computerized Tomography (CT Scan) of Left Pulmonary Artery using Other Contrast (ICD-10-PCS; 2017-05-22)
PROC: B32SYZZ Computerized Tomography (CT Scan) of Right Pulmonary Artery using Other Contrast (ICD-10-PCS; 2017-05-22)
PROC: B24BZZZ Ultrasonography of Heart with Aorta (ICD-10-PCS; 2017-05-23)
PROC: 02HV33Z Insertion of Infusion Device into Superior Vena Cava, Percutaneous Approach (ICD-10-PCS; principal; 2017-05-26)
PROC: B548ZZA Ultrasonography of Superior Vena Cava, Guidance (ICD-10-PCS; 2017-05-26)
DX: A41.9 Sepsis, unspecified organism (principal); J96.01 Acute respiratory failure with hypoxia; I26.99 Other pulmonary embolism without acute cor pulmonale; I21.4 Non-ST elevation (NSTEMI) myocardial infarction; J69.0 Pneumonitis due to inhalation of food and vomit; R13.10 Dysphagia, unspecified; R04.2 Hemoptysis; D50.9 Iron deficiency anemia, unspecified; E89.0 Postprocedural hypothyroidism; G89.29 Other chronic pain; M54.9 Dorsalgia, unspecified; Z87.891 Personal history of nicotine dependence; Z90.49 Acquired absence of other specified parts of digestive tract; Z90.710 Acquired absence of both cervix and uterus; Z88.2 Allergy status to sulfonamides; Z88.1 Allergy status to other antibiotic agents; Z88.8 Allergy status to other drugs, medicaments and biological substances; Z91.040 Latex allergy status
CPT/HCPCS: 71020; 71275; 74230; 76937; 77001; 80048; 80061; 80076; 80200; 81003; 82308; 82550; 82553; 82565; 83036; 83540; 83550; 83605; 83880; 84443; 84484; 85025; 85027; 85610; 85730; 87040; 87070; 87205; 92526; 92610; 92611; 93005; 93306; 93970; 93971; 94010; 94640; 94760; 99291; C1751; G8996-GN; G8997-GN; G8998-GN; J1170; J1650; J2060; J2405; J2543; J3260; J3370; Q9967